=== PATIENT | male | born 1990 | race Caucasian/White ===

== ENCOUNTER 2023-09-21 11:22 | Emergency (ER) | payer SELFPAY ==
[2023-09-21 11:25] VITALS: BP 119/83
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
== END 2023-09-21 12:26 | disposition home or self-care (01) ==
LOC: EMR 11:22
PROVIDERS: EMERGENCY PHYSICIAN Student in an Organized Health Care Education/Training Program; FAMILY PHYSICIAN Family Medicine
DX: S06.0XAA Concussion with loss of consciousness status unknown, initial encounter (principal); V43.52XA Car driver injured in collision with other type car in traffic accident, initial encounter; M54.2 Cervicalgia; M54.9 Dorsalgia, unspecified
CPT/HCPCS: 99283

== ENCOUNTER 2024-10-13 17:25 | Emergency (ER) | payer BC, SELFPAY ==
[2024-10-13 17:26] VITALS: BP 141/82
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
== END 2024-10-13 19:29 | disposition home or self-care (01) ==
LOC: EMR 17:25
PROVIDERS: EMERGENCY PHYSICIAN Emergency Medicine; FAMILY PHYSICIAN Family Medicine
DX: S30.0XXA Contusion of lower back and pelvis, initial encounter (principal); W10.9XXA Fall (on) (from) unspecified stairs and steps, initial encounter
CPT/HCPCS: 99283; 72110; 72220

== ENCOUNTER 2025-03-01 10:23 | Emergency (ER) | payer SELFPAY ==
[2025-03-01 10:26] VITALS: BP 150/84
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
[2025-03-01] MEDS: MOTRIN 600 MG PO (11:20)
== END 2025-03-01 12:56 | disposition home or self-care (01) ==
LOC: EMR 10:23
PROVIDERS: EMERGENCY PHYSICIAN Student in an Organized Health Care Education/Training Program; FAMILY PHYSICIAN Family Medicine
DX: S00.93XA Contusion of unspecified part of head, initial encounter (principal); S39.012A Strain of muscle, fascia and tendon of lower back, initial encounter; V89.2XXA Person injured in unspecified motor-vehicle accident, traffic, initial encounter; Y92.410 Unspecified street and highway as the place of occurrence of the external cause
CPT/HCPCS: 99284; 70450; 72110

== ENCOUNTER 2025-04-22 09:11 | Emergency (ER) | payer BC, SELFPAY ==
[2025-04-22 09:19] VITALS: BP 115/80
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
[2025-04-22 09:46] VITALS: BMI 39.1
[2025-04-22] MEDS: REGLAN 10 MG IV (09:48)
[2025-04-22] MEDS: BENADRYL 25 MG IV (09:48)
[2025-04-22] MEDS: NSS 1000 IV (09:48)
[2025-04-22 09:50] LABS: Hematocrit 39.3 % (39.0-52.0); Hemoglobin 13.3 g/dL (13.0-18.0); Mean Corp Hgb Conc. 33.8 g/dL (33.0-37.0); Mean Corpuscular Volume 88.1 fL (80.0-94.0); Nucleated Red Blood Cells % 0 % (-); Platelet Count 284 10^3/uL (130-400); Red Cell Dist. Width 14.1 % (11.5-14.5)
[2025-04-22 10:05] LABS: INR 0.88; PT 12.1 Sec (11.4-14.6)
[2025-04-22 10:06] LABS: APTT 31.1 Sec (23.4-35.0)
[2025-04-22 10:20] LABS: ALT (SGPT) 32 U/L (0-50); AST (SGOT) 24 U/L (17-59); Albumin 4.3 g/dl (3.5-5.0); Alkaline Phosphatase 74 U/L (38-126); Blood Urea Nitrogen 14 mg/dl (9-20); COVID-19 Antigen Negative (Negative); Calcium 9.0 mg/dl (8.4-10.2); Carbon Dioxide 25 mmol/L (22-30); Chloride 108 mmol/L (98-107); Estimated Creatinine Clearance > 125 ml/min; Glucose 100 mg/dl (70-99); Potassium 4.4 mmol/L (3.5-5.1); Sodium 139 mmol/L (135-145); Total Protein 7.2 g/dl (6.3-8.2); eGFR > 60.00
== END 2025-04-22 11:27 | disposition home or self-care (01) ==
LOC: EMR 09:11
PROVIDERS: EMERGENCY PHYSICIAN Emergency Medicine; FAMILY PHYSICIAN Family Medicine
DX: R51.9 Headache, unspecified (principal); Z11.52 Encounter for screening for COVID-19
CPT/HCPCS: 96374; 96375; 96361; 99284; 70496; 70498; 80053; 85025; 85610; 85730; 87502; 87811; Q9967